=== PATIENT | male | born 1970 | race Caucasian/White ===

== ENCOUNTER 2016-11-14 09:18 | Emergency (ER) | payer SELFPAY ==
[~2016-11-14] VITALS: Ht 172.7 cm; Wt 79.4 kg
[2016-11-14 09:39] VITALS: BP 131/90
[2016-11-14] MEDS ORDERED: GLU500 PO (09:45)
--- NOTE | 2016-11-14 10:31 | NUR ---
Patient ambulated to [facility] to be evaluated as fast track by Dr. Turcios. RN evaluating patient.
--- NOTE | 2016-11-14 10:31 | NUR ---
PT PRESENTS TO ER FOR EVALUATION OF RASH X10 DAYS TO CHEST AND ARMPITS. HX DM. DENIES N/V/D; SKIN IS PINK/WARM/DRY; AAOX4 WITH EVEN AND STEADY GAIT; LUNGS CLEAR BL; HR EVEN AND REGULAR; PT DENIES ANY FEVER, CP, SOB, OR COUGH AT THIS TIME; PATIENT STATES PAIN OF 0/10 AT THIS TIME; VSS; PATIENT POSITIONED FOR COMFORT; HOB ELEVATED; BEDRAILS UP X2; BED DOWN. ER MD MADE AWARE OF PT STATUS.
--- NOTE | 2016-11-14 10:34 | NUR ---
[facility] PT BEING EVALUATED BY DR MOORE
[2016-11-14 10:50] VITALS: BP 138/91
--- NOTE | 2016-11-14 10:50 | NUR ---
Patient discharged with v/s stable. Written and verbal after care instructions given and explained. Patient alert, oriented and verbalized understanding of instructions. Ambulatory with steady gait. All questions addressed prior to discharge. ID band removed. Patient advised to follow up with PMD. Rx of PREDNISONE, DIPHENHYDRAMINE, HYDROCORTISONE given. Patient educated on indication of medication including possible reaction and side effects. Opportunity to ask questions provided and answered.
== END 2016-11-14 10:50 | disposition home or self-care (01) ==
LOC: MED 09:18
DX: L30.9 Dermatitis, unspecified (principal); R03.0 Elevated blood-pressure reading, without diagnosis of hypertension; E11.9 Type 2 diabetes mellitus without complications; Z79.84 Long term (current) use of oral hypoglycemic drugs
CPT/HCPCS: 99283

== ENCOUNTER 2020-02-16 15:54 | Emergency (ER) | payer SELFPAY ==
[~2020-02-16] VITALS: Ht 177.8 cm; Wt 80.7 kg
[~2020-02-16 15:54] MED LIST: GLU500 PO
[2020-02-16 16:30] VITALS: BP 160/90
[2020-02-16] MEDS ORDERED: HYDROcodone/APAP 5/325 MG 1 TAB TAB PO ONE (17:05)
[2020-02-16 17:29] LABS: APPEARANCE,URINE CLEAR (CLEAR); BILIRUBIN,URINE NEGATIVE (NEGATIVE); BLOOD, URINE NEGATIVE (NEGATIVE); COLOR,URINE YELLOW (YELLOW); LEUKOCYTE ESTERASE ,URINE NEGATIVE (NEGATIVE); NITRITE, URINE NEGATIVE (NEGATIVE); PH,URINE 5.5 (5.0-9.0); UGLUCOSE 3+ (NEGATIVE)
[2020-02-16 18:25] VITALS: BP 160/90
--- NOTE | 2020-02-16 18:25 | NUR ---
Patient discharged with v/s stable. Written and verbal after care instructions given and explained. Patient alert, oriented and verbalized understanding of instructions. Ambulatory with steady gait. All questions addressed prior to discharge. ID band removed. Patient advised to follow up with PMD. Rx of ROBAXIN, NAPROSYN given. Patient educated on indication of medication including possible reaction and side effects. Opportunity to ask questions provided and answered.
== END 2020-02-16 18:25 | disposition home or self-care (01) ==
LOC: MED 15:54
DX: M54.6 Pain in thoracic spine (principal); R30.0 Dysuria; E11.9 Type 2 diabetes mellitus without complications; Z79.84 Long term (current) use of oral hypoglycemic drugs
CPT/HCPCS: 81003; 99283